=== PATIENT | female | born 1965 | race Caucasian/White ===

== ENCOUNTER → 2017-10-02 | Outpatient (CLI) | payer MEDICARE, MEDICAID | LOC: OD 12:07 | PROVIDERS: ATTEND Nurse Practitioner Acute Care | DX: M79.641 Pain in right hand (principal) | CPT/HCPCS: 36415; 84550 ==

== ENCOUNTER 2017-10-20 16:49 | Emergency (ER) | payer MEDICARE, MEDICAID ==
[2017-10-20 17:47] LABS: APPEARANCE,URINE CLEAR; BILIRUBIN,URINE NEGATIVE (NEGATIVE); COLOR,URINE STRAW; GLUCOSE, URINE NEGATIVE (NEGATIVE); KETONES,URINE NEGATIVE (NEGATIVE); LEUKOCYTE ESTERASE,URINE NEGATIVE (NEGATIVE); NITRITE,URINE NEGATIVE (NEGATIVE); PROTEIN,URINE NEGATIVE (NEGATIVE); URINE SPECIFIC GRAVITY 1.003; UROBILINOGEN,URINE NEGATIVE mg/dL (<2.0)
[2017-10-20] MEDS ORDERED: METOCLOPRAMIDE HCL INJ/PF 10 MG/2 ML SDV IV ONE (17:47)
[2017-10-20] MEDS ORDERED: NORMAL SALINE 1000 ML 1,000 ML IV ONE (17:47)
[2017-10-20] MEDS ORDERED: DIPHENHYDRAMINE HCL 50 MG/ML VIAL IV ONE (17:47)
[2017-10-20] MEDS ORDERED: KETOROLAC TROMETHAMINE INJ/PF 30 MG/1 ML SDV IV ONE (17:47)
--- NOTE | 2017-10-20 17:49 | ER Document Report ---
ED Medical Screen (RME) - General Chief Complaint: Headache >24 hrs old Stated Complaint: HEADACHE,RIGHT SIDE PAIN Time Seen by Provider: 10/20/17 17:44 Notes: Patient is a 52-year-old female, past medical history chronic neck and back pain , bilateral cataracts, presents with worsening frontal headache over the past 3 weeks. She is having some difficulty seeing due to the cataracts and has an appointment with castables worker in 9 days. She is also having some nausea. PE: No focal neuro symptoms. Afebrile. RRR. I have greeted and performed a rapid initial assessment of this patient. A comprehensive ED assessment and evaluation of the patient, analysis of test results and completion of the medical decision making process will be conducted by additional ED providers. TRAVEL OUTSIDE OF THE [place] IN LAST 30 DAYS: No - Related Data Allergies/Adverse Reactions: No Known Allergies Allergy (Verified 10/20/17 16:56) Physical Exam - Vital signs Vitals: Temp Pulse Resp BP Pulse Ox 99.2 F 76 18 124/78 99 10/20/17 16:54 10/20/17 16:54 10/20/17 16:54 10/20/17 16:54 10/20/17 16:54 Course - Vital Signs Vital signs: Temp Pulse Resp BP Pulse Ox 99.2 F 76 18 124/78 99 10/20/17 16:54 10/20/17 16:54 10/20/17 16:54 10/20/17 16:54 10/20/17 16:54 Doctor's Discharge - Discharge Referrals: GURWINDER LARSON NP [Primary Care Provider] - Follow up as needed
[2017-10-20] MEDS ORDERED: DEXAMETHASONE 4 MG TABLET PO ONE (19:12)
[2017-10-20] MEDS ORDERED: HYDROMORPHONE HCL INJ/PF 2 MG/ML AMPULE IV ONE (19:12)
[2017-10-20] MEDS ORDERED: PROMETHAZINE HCL 25 MG TABLET PO ONE (19:15)
--- NOTE | 2017-10-20 19:17 | ER Document Report ---
ED General - General Chief Complaint: Headache >24 hrs old Stated Complaint: HEADACHE,RIGHT SIDE PAIN Time Seen by Provider: 10/20/17 17:44 Mode of Arrival: Ambulatory Information source: Patient, Relative, [facility] Records Notes: 52-year-old female with COPD, hyperlipidemia, chronic neck and back pain, glaucoma presents with complaint of headache that started 4 days prior to arrival. Headache is located in the right forehead with radiation to the neck. She describes it as a throbbing pain. She states this headache is similar to previous headaches except for she can usually control them at home. She denies any head injury, visual changes. She does have a left eye cataract for which she is seeing ophthalmology on October 29, 2017. Patient is currently in pain management for her chronic neck and back pain. She takes Percocet and gabapentin. Patient denies fever, chills. She does have nausea without vomiting. She does admit to photophobia. TRAVEL OUTSIDE OF THE [place] IN LAST 30 DAYS: No - HPI Onset: Other Onset/Duration: Gradual, Persistent, Better Quality of pain: Achy, Throbbing Severity: Mild Associated symptoms: Headache, Nausea. denies: Allergy/hay fever, Body/muscle aches, Chest pain, Nonproductive cough, Productive cough, Fever, Vomiting, Shortness of breath Exacerbated by: Denies Relieved by: Denies Similar symptoms previously: Yes Recently seen / treated by doctor: Yes - Related Data Allergies/Adverse Reactions: No Known Allergies Allergy (Verified 10/20/17 16:56) Past Medical History - General Information source: Patient, [facility] Records - Social History Smoking Status: Never Smoker Chew tobacco use (# tins/day): No Frequency of alcohol use: None Drug Abuse: None Lives with: Spouse/Significant other Family History: Reviewed & Not Pertinent Patient has suicidal ideation: No Patient has homicidal ideation: No - Past Medical History Cardiac Medical History: Reports: Hx Hypercholesterolemia Pulmonary Medical History: Reports: Hx Asthma, Hx COPD Renal/ Medical History: Denies: Hx Peritoneal Dialysis GI Medical History: Reports: Hx Gastroesophageal Reflux Disease Psychiatric Medical History: Reports: Hx Depression - anxiety Past Surgical History: Reports: Hx Appendectomy, Hx Cholecystectomy, Hx Hysterectomy, Hx Orthopedic Surgery - cervical disc Review of Systems - Review of Systems Notes: REVIEW OF SYSTEMS: CONSTITUTIONAL : Denies fever, chills, or sweats. Denies recent illness. Denies weight loss, recent hospitalizations. EENT: Denies visual changes, eye pain. Denies nasal or sinus congestion or discharge. Denies sore throat, oral lesions, difficulty swallowing. CARDIOVASCULAR: Denies chest pain. Denies palpitations. Denies lower extremity edema. RESPIRATORY: Denies cough, cold, or chest congestion. Denies shortness of breath, wheezing. GASTROINTESTINAL: Denies abdominal pain or distention. Denies nausea, vomiting , or diarrhea. Denies blood in vomitus, stools, or per rectum. Denies black, tarry stools. Denies constipation. GENITOURINARY: Denies difficulty urinating, painful urination, frequency, blood in urine, or vaginal discharge. MUSCULOSKELETAL: Denies joint pain or swelling. SKIN: Denies rash, lesions or sores. HEMATOLOGIC : Denies easy bruising or bleeding. LYMPHATIC: Denies swollen glands. NEUROLOGICAL: Denies confusion or altered mental status. Denies passing out or loss of consciousness. Denies dizziness or lightheadedness. Denies weakness or paralysis. Denies problems difficulty with ambulation, slurred speech. Denies sensory loss, numbness, or tingling. Denies seizures. PSYCHIATRIC: Denies anxiety or stress. Denies depression, suicidal ideation, or homicidal ideation. Denies visual or auditory hallucinations. Physical Exam - Vital signs Vitals: Temp Pulse Resp BP Pulse Ox 99.2 F 76 18 124/78 99 10/20/17 16:54 10/20/17 16:54 10/20/17 16:54 10/20/17 16:54 10/20/17 16:54 - Notes Notes: PHYSICAL EXAMINATION: GENERAL: Well-appearing, well-nourished and in no acute distress. HEAD: Atraumatic, normocephalic. EYES: Pupils equal round and reactive to light, extraocular movements intact, conjunctiva are normal. Normal funduscopic exam ENT: Nares patent, oropharynx clear without exudates. Moist mucous membranes. NECK: Normal range of motion, supple without lymphadenopathy LUNGS: Breath sounds clear to auscultation bilaterally and equal. No wheezes rales or rhonchi. HEART: Regular rate and rhythm without murmurs ABDOMEN: Soft, nontender, nondistended abdomen. No guarding, no rebound. No masses appreciated. Female : deferred Musculoskeletal: Normal range of motion, no pitting or edema. No cyanosis. NEUROLOGICAL: Cranial nerves grossly intact. Normal speech, normal gait. Normal sensory, motor exams. NIH 0 PSYCH: Normal mood, normal affect. SKIN: Warm, Dry, normal turgor, no rashes or lesions noted. Course - Re-evaluation Re-evalutation: Laboratory 10/20/17 16:55 Urine Color STRAW Urine Appearance CLEAR Urine pH 5.0 Ur Specific [place] 1.003 Urine Protein NEGATIVE Urine Glucose (UA) NEGATIVE Urine Ketones NEGATIVE Urine Blood NEGATIVE Urine Nitrite NEGATIVE Urine Bilirubin NEGATIVE Urine Urobilinogen NEGATIVE Ur Leukocyte Esterase NEGATIVE Urine WBC (Auto) 0 Urine Mucus (Auto) RARE Urine Ascorbic Acid NEGATIVE 52-year-old female with COPD, hyperlipidemia, chronic neck and back pain, glaucoma presents with complaint of headache that started 4 days prior to arrival. Headache is located in the right forehead with radiation to the neck. She describes it as a throbbing pain. She states this headache is similar to previous headaches except for she can usually control them at home. She denies any head injury, visual changes. She does have a left eye cataract for which she is seeing ophthalmology on October 29, 2017. Patient is currently in pain management for her chronic neck and back pain. She takes Percocet and gabapentin. Patient received IV Benadryl, Toradol, Dilaudid during her ED course. 10/20/17 20:20 Patient reevaluated and she reports an improvement of her headache. 10/21/17 03:03 10/21/17 03:09 10/21/17 03:09 Patient provided the opportunity to ask questions, and express concerns. Discharge instructions discussed. Patient is agreeable with discharge home. Return indications explained and discussed with the patient who displays understanding. Patient encouraged to return to the emergency department immediately with any concerns. - Vital Signs Vital signs: Temp Pulse Resp BP Pulse Ox 97.8 F 75 16 152/83 H 98 10/20/17 20:39 10/20/17 20:39 10/20/17 20:39 10/20/17 20:39 10/20/17 20:39 Discharge - Discharge Clinical Impression: Headache Qualifiers: Headache type: unspecified Headache chronicity pattern: chronic headache Intractability: not intractable Qualified Code(s): R51 - Headache Condition: Good Disposition: HOME, SELF-CARE Instructions: Headache ([facility]) Additional Instructions: Please follow-up with your veneer stapler as already scheduled. Referrals: GURWINDER LARSON NP [NURSE PRACTITIONER] - Follow up as needed
[2017-10-20] MEDS ORDERED: LORAZEPAM 1 MG TABLET PO ONE (20:21)
[2017-10-20 20:40] VITALS: BP 152/83
== END 2017-10-20 20:39 | disposition home or self-care (01) ==
LOC: ER 16:49
DX: R51 Headache (principal); R11.0 Nausea; H53.149 Visual discomfort, unspecified; J44.9 Chronic obstructive pulmonary disease, unspecified; H26.9 Unspecified cataract; H40.9 Unspecified glaucoma; M54.9 Dorsalgia, unspecified; M54.2 Cervicalgia; G89.29 Other chronic pain; Z79.891 Long term (current) use of opiate analgesic; Z79.899 Other long term (current) drug therapy
CPT/HCPCS: 99284; 96361; 96374; 96375; 81001; A9270 ×3; J1200; J1885; J2765; J1170; J7030

== ENCOUNTER 2017-11-16 11:57 | Emergency (ER) | payer MEDICARE, MEDICAID ==
[2017-11-16] MEDS ORDERED: FENTANYL CITRATE INJ/PF 100 MCG/2 ML AMPUL IV ONE (12:26)
[2017-11-16] MEDS ORDERED: KETOROLAC TROMETHAMINE 60 MG/2 ML SDV IM ONE (12:26)
[2017-11-16] MEDS ORDERED: ONDANSETRON ODT 4 MG TAB (6 TAB/ER DISP) PO PRN (12:26)
--- NOTE | 2017-11-16 12:27 | ER Document Report ---
ED Medical Screen (RME) - General Chief Complaint: Chest Pain Stated Complaint: HAND PAIN/NUMBNESS Time Seen by Provider: 11/16/17 12:21 Notes: 52 years old female under pain management, for chronic lower back pain, chronic right arm pain due to prolapse intervertebral disc, surgically corrected. Presents today with another episode of pain over the right arm starting from yesterday. States she was taking Percocet without relief. TRAVEL OUTSIDE OF THE [place] IN LAST 30 DAYS: No - Related Data Allergies/Adverse Reactions: No Known Drug Allergies Allergy (Mild, Verified 11/16/17 12:25) Past Medical History - Social History Chew tobacco use (# tins/day): No Frequency of alcohol use: Occasional Drug Abuse: Marijuana - Past Medical History Cardiac Medical History: Reports: Hx Hypercholesterolemia Denies: Hx Coronary Artery Disease, Hx Heart Attack, Hx Hypertension Pulmonary Medical History: Reports: Hx Asthma, Hx Bronchitis Denies: Hx COPD, Hx Pneumonia Neurological Medical History: Denies: Hx Cerebrovascular Accident, Hx Seizures Renal/ Medical History: Denies: Hx Peritoneal Dialysis GI Medical History: Reports: Hx Diverticulitis, Hx Gastroesophageal Reflux Disease, Hx Irritable Bowel, Hx Ulcer Musculoskeltal Medical History: Reports Hx Arthritis Psychiatric Medical History: Reports: Hx Depression Past Surgical History: Reports: Hx Appendectomy, Hx Cholecystectomy, Hx Genitourinary Surgery - bladder tack, Hx Hysterectomy, Hx Orthopedic Surgery - cervical disc - Immunizations Hx Diphtheria, Pertussis, Tetanus Vaccination: Yes Physical Exam - Vital signs Vitals: Temp Pulse Resp BP Pulse Ox 99.1 F 71 20 104/55 L 98 11/16/17 12:11/16/17 12:11/16/17 12:11/16/17 12:11/16/17 12:06 Course - Vital Signs Vital signs: Temp Pulse Resp BP Pulse Ox 99.1 F 71 20 104/55 L 98 11/16/17 12:11/16/17 12:11/16/17 12:11/16/17 12:11/16/17 12:06 Doctor's Discharge - Discharge Referrals: CELINA TRONCOSO MD [Primary Care Provider] - Follow up as needed
--- NOTE | 2017-11-16 13:12 | EKG REPORT ---
SEVERITY:- NORMAL ECG - SINUS RHYTHM : Confirmed by: Natalya Momin MD 16-Nov-2017 13:11:26
[2017-11-16] MEDS ORDERED: PREDNISONE 20 MG TABLET PO ONE (17:54)
--- NOTE | 2017-11-16 17:54 | ER Document Report ---
ED General - General Mode of Arrival: Ambulatory Information source: Patient TRAVEL OUTSIDE OF THE [place] IN LAST 30 DAYS: No <DAMIAN OSULLIVAN - Last Filed: 11/16/17 22:47> <ALEJANDRA GALLEGOS - Last Filed: 11/16/17 23:56> - General Chief Complaint: Chest Pain Stated Complaint: HAND PAIN/NUMBNESS Time Seen by Provider: 11/16/17 12:21 Notes: 52-year-old female who presents to the emergency department today with complaints of burning sensation in her right hand. Patient states certain movements seem to exacerbate this burning sensation. Patient states it sometimes wakes her up from sleep. There was no injury. (DAMIAN OSULLIVAN) - Related Data Allergies/Adverse Reactions: No Known Drug Allergies Allergy (Mild, Verified 11/16/17 12:25) Past Medical History - General Information source: Patient - Social History Smoking Status: Current Every Day Smoker Cigarette use (# per day): Yes Chew tobacco use (# tins/day): No Frequency of alcohol use: Occasional Drug Abuse: Marijuana Family History: None, Reviewed & Not Pertinent, Other Patient has suicidal ideation: No Patient has homicidal ideation: No - Past Medical History Cardiac Medical History: Reports: Hx Hypercholesterolemia Denies: Hx Coronary Artery Disease, Hx Heart Attack, Hx Hypertension Pulmonary Medical History: Reports: Hx Asthma, Hx Bronchitis Denies: Hx COPD, Hx Pneumonia Neurological Medical History: Denies: Hx Cerebrovascular Accident, Hx Seizures Renal/ Medical History: Denies: Hx Peritoneal Dialysis GI Medical History: Reports: Hx Diverticulitis, Hx Gastroesophageal Reflux Disease, Hx Irritable Bowel, Hx Ulcer Musculoskeletal Medical History: Reports Hx Arthritis Psychiatric Medical History: Reports: Hx Depression Past Surgical History: Reports: Hx Appendectomy, Hx Cholecystectomy, Hx Genitourinary Surgery - bladder tack, Hx Hysterectomy, Hx Orthopedic Surgery - cervical disc - Immunizations Hx Diphtheria, Pertussis, Tetanus Vaccination: Yes <DAMIAN OSULLIVAN - Last Filed: 11/16/17 22:47> Review of Systems - Review of Systems Constitutional: No symptoms reported EENT: No symptoms reported Cardiovascular: No symptoms reported Respiratory: No symptoms reported Gastrointestinal: No symptoms reported Genitourinary: No symptoms reported Female Genitourinary: No symptoms reported Musculoskeletal: See HPI, Other - right hand burning Skin: No symptoms reported Hematologic/Lymphatic: No symptoms reported Neurological/Psychological: No symptoms reported -: Yes All other systems reviewed and negative <DAMIAN OSULLIVAN - Last Filed: 11/16/17 22:47> Physical Exam - Vital signs Interpretation: Normal - General General appearance: Alert, Anxious In distress: Moderate - HEENT Head: Normocephalic, Atraumatic Eyes: Normal Pupils: PERRL Neck: Normal - Respiratory Respiratory status: No respiratory distress - Cardiovascular Rhythm: Regular - Abdominal Inspection: Normal - Back Back: Normal - Extremities General upper extremity: Other - Right hand positive Phalen's and Tinel test General lower extremity: Normal inspection - Neurological Neuro grossly intact: Yes - Psychological Associated symptoms: Anxious - Skin Skin Temperature: Warm Skin Moisture: Dry Skin Color: Normal <ALEJANDRA GALLEGOS - Last Filed: 11/16/17 23:56> - Vital signs Vitals: Temp Pulse Resp BP Pulse Ox 99.1 F 71 20 104/55 L 98 11/16/17 12:06 11/16/17 12:06 11/16/17 12:06 11/16/17 12:06 11/16/17 12:06 Course - EKG Interpretation by Fl EKG shows normal: Sinus rhythm, [place], Intervals, QRS Complexes, ST-T Waves Rate: Normal - 68 Rhythm: NSR <ALEJANDRA GALLEGOS - Last Filed: 11/16/17 23:56> - Vital Signs Vital signs: Temp Pulse Resp BP Pulse Ox 97.8 F 80 18 121/89 H 98 11/16/17 18:24 11/16/17 18:24 11/16/17 18:24 11/16/17 18:24 11/16/17 18:24 Discharge <DAMIAN OSULLIVAN - Last Filed: 11/16/17 22:47> <ALEJANDRA GALLEGOS - Last Filed: 11/16/17 23:56> - Discharge Clinical Impression: Right carpal tunnel syndrome Condition: Stable Disposition: HOME, SELF-CARE Additional Instructions: Carpal Tunnel Syndrome: Your examination suggests carpal tunnel syndrome. This syndrome is due to pressure on a nerve in the wrist. The pressure may be caused by an old injury, hard work using the wrist, work involving repeated motions of the hand, wrist positions that keep pressure on the joint, or arthritis in the wrist. Typical symptoms are tingling, numbness, and pain in the palm, thumb, index and middle fingers, and one side of the ring finger. Often a splint, ice packs, and antiinflammatory medication make the symptoms go away. If the physician feels that your problem is chronic, you will be referred to a specialist for further care. If symptoms do not go away, carpal tunnel syndrome may require surgery. You should call the doctor if pain increases, if you develop difficulty using the thumb or fingers, or if major swelling occurs. Start the prednisone as prescribed tomorrow. Try the wrist splint to keep your wrist in extension and see if that helps prevent the symptoms from persisting or worsening. Elevate the hand above the heart as much as possible. Follow-up with your primary care provider tomorrow for referral to a surgeon that does carpal tunnel release. Prescriptions: Prednisone [Deltasone 10 mg Tablet] 10 mg PO ASDIR PRN #21 tablet PRN Reason: Referrals: CELINA TRONCOSO MD [Primary Care Provider] - Follow up tomorrow Scribe Attestation: 11/16/17 17:57 I personally performed the services described in the documentation, reviewed and edited the documentation which was dictated to the scribe in my presence, and it accurately records my words and actions. (ALEJANDRA GALLEGOS) Scribe Documentation - Scribe Written by Elvin:: Elvin Hardwick, 11/16/2017 [id number] acting as scribe for :: Rl <DAMIAN OSULLIVAN - Last Filed: 11/16/17 22:47>
[2017-11-16 18:27] VITALS: BP 121/89
== END 2017-11-16 18:28 | disposition home or self-care (01) ==
LOC: ER 11:57
DX: G56.01 Carpal tunnel syndrome, right upper limb (principal); R07.9 Chest pain, unspecified; R20.0 Anesthesia of skin; F17.210 Nicotine dependence, cigarettes, uncomplicated; E78.00 Pure hypercholesterolemia, unspecified; Z90.49 Acquired absence of other specified parts of digestive tract
CPT/HCPCS: 93005; 99285; 96372; 96374; 93010; L3908; J1885; J3010; A9270; J7512

== ENCOUNTER 2018-01-06 10:26 | Day surgery (SDC) | payer MEDICARE, MEDICAID ==
[~2018-01-06 10:26] MED LIST: KETOROLAC TROMETHAMINE 0.45% 4 DROP/0.4 ML DROPERETTE OS PRN
[2018-01-06] MEDS ORDERED: TOBRAMYCIN SULFATE/DEXAMETH OPH OINTMENT 3.5 GM ONE (10:30)
[2018-01-06] MEDS ORDERED: EPINEPHRINE INJ/PF 1 MG/1 ML AMPULE ONE (10:30)
[2018-01-06] MEDS ORDERED: CHONDR SU A NA/HYALUR INTRAOC KIT (SURGICARE) ONE (10:30)
[2018-01-06] MEDS ORDERED: LIDOCAINE 1% INJ-PF (10 MG/ML) 30 ML SDV ONE (10:30)
[2018-01-06] MEDS: BESIFLOXACIN HCL 0.6% OPH SUSP 5 ML BOTTLE OS PRN ×3 (11:27→12:15)
[2018-01-06] MEDS: CYCLOPENTOLATE 0.2%/PHENYLEPHRINE 1% OPH SOLN 2 ML OS PRN ×3 (11:27→11:47)
[2018-01-06] MEDS: TETRACAINE HCL 0.5% OPH SOLN 0.6 ML DROPERETTE OS PRN ×3 (11:27→11:57)
[2018-01-06] MEDS: TROPICAMIDE 1% OPH SOLN 3 ML OS PRN ×3 (11:27→11:47)
[2018-01-06] MEDS ORDERED: FENTANYL CITRATE INJ/PF 100 MCG/2 ML AMPUL ONE (11:36)
[2018-01-06] MEDS ORDERED: MIDAZOLAM 2 MG/2 ML INJ ONE (11:36)
== END 2018-01-06 12:52 | disposition home or self-care (01) ==
LOC: SC 10:26
PROVIDERS: ATTEND Ophthalmology
DX: H25.12 Age-related nuclear cataract, left eye (principal); E78.00 Pure hypercholesterolemia, unspecified; F17.210 Nicotine dependence, cigarettes, uncomplicated; J43.9 Emphysema, unspecified; M06.9 Rheumatoid arthritis, unspecified; K21.9 Gastro-esophageal reflux disease without esophagitis; Z79.51 Long term (current) use of inhaled steroids; Z79.899 Other long term (current) drug therapy
CPT/HCPCS: 66984; V2630; J2250; J3490 ×3; A9270; J0171; J3010; 142

== ENCOUNTER 2018-01-13 09:04 | Day surgery (SDC) | payer MEDICARE, MEDICAID ==
[~2018-01-13 09:04] MED LIST changes: +KETOROLAC TROMETHAMINE 0.45% 4 DROP/0.4 ML DROPERETTE OD PRN; -KETOROLAC TROMETHAMINE 0.45% 4 DROP/0.4 ML DROPERETTE OS PRN; +MIDAZOLAM 2 MG/2 ML INJ ONE
[2018-01-13] MEDS: CYCLOPENTOLATE 0.2%/PHENYLEPHRINE 1% OPH SOLN 2 ML OD PRN ×3 (09:14→09:34)
[2018-01-13] MEDS: BESIFLOXACIN HCL 0.6% OPH SUSP 5 ML BOTTLE OD PRN ×4 (09:14→10:29)
[2018-01-13] MEDS: TROPICAMIDE 1% OPH SOLN 3 ML OD PRN ×3 (09:14→09:34)
[2018-01-13] MEDS: TETRACAINE HCL 0.5% OPH SOLN 0.6 ML DROPERETTE OD PRN ×3 (09:15→10:18)
[2018-01-13] MEDS: CHONDR SU A NA/HYALUR INTRAOC KIT (SURGICARE) ONE ×2 (10:22→10:28)
[2018-01-13] MEDS: EPINEPHRINE INJ/PF 1 MG/1 ML AMPULE ONE ×2 (10:22→10:28)
[2018-01-13] MEDS: TOBRAMYCIN SULFATE/DEXAMETH OPH OINTMENT 3.5 GM ONE ×2 (10:23→10:29)
[2018-01-13] MEDS: LIDOCAINE 1% INJ-PF (10 MG/ML) 30 ML SDV ONE ×2 (10:23→10:28)
[2018-01-13] MEDS ORDERED: FENTANYL CITRATE INJ/PF 100 MCG/2 ML AMPUL ONE (10:25)
[2018-01-13] MEDS ORDERED: MIDAZOLAM 2 MG/2 ML INJ ONE (10:25)
== END 2018-01-13 11:10 | disposition home or self-care (01) ==
LOC: SC 09:04
PROVIDERS: ATTEND Ophthalmology
DX: H25.11 Age-related nuclear cataract, right eye (principal); Z98.42 Cataract extraction status, left eye; M19.90 Unspecified osteoarthritis, unspecified site; K21.9 Gastro-esophageal reflux disease without esophagitis; E78.00 Pure hypercholesterolemia, unspecified; M06.9 Rheumatoid arthritis, unspecified; J43.9 Emphysema, unspecified; F17.210 Nicotine dependence, cigarettes, uncomplicated; Z79.51 Long term (current) use of inhaled steroids; Z79.899 Other long term (current) drug therapy
CPT/HCPCS: 66984; V2630; J2250; J3490 ×3; A9270; J0171; J3010; 142

== ENCOUNTER 2018-05-03 10:40 | Inpatient (IN) | payer MEDICARE, MEDICAID ==
[2018-04-30 10:25] LABS: APPEARANCE,URINE CLEAR; BILIRUBIN,URINE NEGATIVE (NEGATIVE); COLOR,URINE YELLOW; GLUCOSE, URINE NEGATIVE (NEGATIVE); KETONES,URINE NEGATIVE (NEGATIVE); LEUKOCYTE ESTERASE,URINE TRACE (NEGATIVE); NITRITE,URINE NEGATIVE (NEGATIVE); PROTEIN,URINE NEGATIVE (NEGATIVE); URINE SPECIFIC GRAVITY 1.012; UROBILINOGEN,URINE NEGATIVE mg/dL (<2.0)
[2018-04-30 10:40] LABS: HEMATOCRIT 40.3 % (36.0-47.0); MEAN CORPUSCULAR HGB CONC 34.7 g/dL (32.0-36.0); MEAN CORPUSCULAR VOLUME 95 fl (80-97); PLATELET COUNT 197 10^3/uL (150-450); RED BLOOD COUNT 4.24 10^6/uL (3.72-5.28); RED CELL DISTRIBUTION WIDTH 14.1 % (11.5-14.0); WHITE BLOOD COUNT 6.6 10^3/uL (4.0-10.5)
[2018-04-30 11:13] LABS: ANION GAP 10 (5-19); BLOOD UREA NITROGEN 10 mg/dL (7-20); CALCIUM 10.4 mg/dL (8.4-10.2); CARBON DIOXIDE 27 mmol/L (22-30); CHLORIDE 106 mmol/L (98-107); GLUCOSE 89 mg/dL (75-110); POTASSIUM 4.1 mmol/L (3.6-5.0); SODIUM 142.5 mmol/L (137-145)
--- NOTE | 2018-04-30 11:42 | RADIOLOGY REPORT (SQ) ---
EXAM DESCRIPTION: CHEST PA/LATERAL COMPLETED DATE/TIME: 04/30/2018 11:29 am REASON FOR STUDY: PRE-OP COMPARISON: None. EXAM PARAMETERS: NUMBER OF VIEWS: two views TECHNIQUE: Digital Frontal and Lateral radiographic views of the chest acquired. RADIATION DOSE: NA LIMITATIONS: none FINDINGS: LUNGS AND PLEURA: No opacities, masses or pneumothorax. No pleural effusion. MEDIASTINUM AND HILAR STRUCTURES: No masses or contour abnormalities. HEART AND VASCULAR STRUCTURES: Heart normal size. No evidence for failure. BONES: No acute findings. HARDWARE: None in the chest. OTHER: No other significant finding. IMPRESSION: NO SIGNIFICANT RADIOGRAPHIC FINDING IN THE CHEST. TECHNICAL DOCUMENTATION: JOB ID: [id number] [employer]- All Rights Reserved Reading location - IP/workstation name: [email or web address]
--- NOTE | 2018-04-30 20:49 | EKG REPORT ---
SEVERITY:- NORMAL ECG - SINUS RHYTHM : Confirmed by: Gray Coronel 30-Apr-2018 20:48:27
[~2018-05-03 10:40] MED LIST changes: +CEFAZOLIN SODIUM 2 GM in DEXTROSE 5%-WATER 100 ML IV PRN; -KETOROLAC TROMETHAMINE 0.45% 4 DROP/0.4 ML DROPERETTE OD PRN; +LACTATED RINGERS 1000 ML IV PRN; +LIDOCAINE 0.5% INJ-PF (5 MG/ML) 50 ML SDV SUBCUT PRN; -MIDAZOLAM 2 MG/2 ML INJ ONE
[2018-05-03] MEDS ORDERED: FENTANYL CITRATE INJ/PF 100 MCG/2 ML AMPUL ONE ×2 (11:08→11:24)
[2018-05-03] MEDS ORDERED: ACETAMINOPHEN 1,000 MG/100 ML RTUPB IV ONE (11:09)
[2018-05-03] MEDS ORDERED: ONDANSETRON HCL INJ/PF 4 MG/2 ML SDV ONE (11:09)
[2018-05-03] MEDS ORDERED: TRANEXAMIC ACID INJ/PF 1,000 MG/10 ML SDV IV ONE (11:09)
[2018-05-03] MEDS ORDERED: PROPOFOL INJ 200 MG/20 ML VIAL IV ONE ×2 (11:09→11:20)
[2018-05-03] MEDS ORDERED: MIDAZOLAM 2 MG/2 ML INJ ONE (11:09)
[2018-05-03] MEDS ORDERED: DEXAMETHASONE SOD PHOSPHATE INJ 4 MG/1 ML VIAL ONE (11:09)
[2018-05-03] MEDS ORDERED: BUPIVACAINE HCL/DEX-WATER/PF 15 MG/2 ML AMPULE ONE (11:11)
[2018-05-03] MEDS ORDERED: CEFAZOLIN 2 GM/D5W RTU 2 GM/50 ML RTUPB IV ONE (11:13)
[2018-05-03] MEDS ORDERED: KETAMINE HCL INJ 500 MG/10 ML VIAL ONE (11:19)
[2018-05-03] MEDS ORDERED: BUPIVACAINE HCL 0.5%-EPI 1:200000 INJ/PF 30 ML VIAL ONE (11:57)
[2018-05-03] MEDS ORDERED: MEPERIDINE HCL/PF INJ 25 MG/1 ML DISP.SYRIN IV PRN (12:10)
[2018-05-03] MEDS ORDERED: FENTANYL CITRATE INJ/PF 100 MCG/2 ML AMPUL IV PRN ×3 (12:10)
[2018-05-03] MEDS ORDERED: PROMETHAZINE HCL INJ 25 MG/1 ML VIAL IV PRN ×2 (12:10)
[2018-05-03] MEDS ORDERED: DIPHENHYDRAMINE HCL 50 MG/ML VIAL IV PRN (12:10)
[2018-05-03] MEDS ORDERED: MORPHINE SULFATE 10 MG/ML INJ IV PRN (12:10)
--- NOTE | 2018-05-03 12:30 | Operative Report ---
Operative Report DATE OF SURGERY: 05/03/18 PREOPERATIVE DIAGNOSIS: Stress fracture left femoral neck OPERATION: Percutaneous pinning of left femoral neck stress fracture SURGEON: COLEEN SANTIAGO ANESTHESIA: LMAC ESTIMATED BLOOD LOSS: Minimal PROCEDURE: With the patient supine on the fracture table the left upper leg and hindquarter prepped and draped in sterile fashion. The skin overlying the trochanteric ridge is infiltrated with a combination of Marcaine, and epinephrine. Subsequently a pin for the [place] titanium 6.5 millimeter screw was advanced through the inferior aspect of the neck and central in terms of anterior posterior dimensions through the left femur. A pin guide was then used to lyse 2 pins proximal to this. Screw lengths were measured off the pins and 3 6.5 mm titanium screws were advanced over the pins to secure the femoral neck. The wound is irrigated and closure is interrupted Vicryl followed by lupe. A sterile dressing was applied and the patient's return to the PACU in satisfactory condition.
[2018-05-03] MEDS: HYDROMORPHONE HCL INJ/PF 2 MG/ML AMPULE ONE ×2 (12:33→12:40)
[2018-05-03] MEDS: FENTANYL CITRATE INJ/PF 100 MCG/2 ML AMPUL ONE ×2 (12:45→12:50)
[2018-05-03] MEDS: LORAZEPAM INJ 2 MG/1 ML VIAL ONE ×2 (12:55→13:10)
[2018-05-03] MEDS ORDERED: RINGERS SOLUTION,LACTATED 1,000 ML IV PRN (14:37)
[2018-05-03] MEDS ORDERED: ONDANSETRON 4 MG TAB.RAPDIS PO PRN (14:40)
--- NOTE | 2018-05-03 15:50 | RADIOLOGY REPORT (SQ) ---
EXAM DESCRIPTION: HIP IN OPERATING RM; NO CHG FLUORO COMPLETED DATE/TIME: 05/03/2018 3:25 pm REASON FOR STUDY: HIP PINNING LEFT SIDE ASST WITH FLUORO IN OR M84.352A STRESS FRACTURE, LEFT FEMUR , INITIAL ENCOUNTER FOR COMPARISON: Two-view chest 04/30/2018 FLUOROSCOPY TIME: 1.1 minutes 3 digital C-arm images saved to PACS. TECHNIQUE: Intra-operative images acquired during surgical procedure to evaluate progress. NUMBER OF IMAGES: 3 digital C-arm images LIMITATIONS: None. FINDINGS: Intra procedural imaging and fluoro during ORIF left femoral neck fracture, 3 lag screws a re in place. Please see the operative report for further details IMPRESSION: IMAGE(S) OBTAINED DURING PROCEDURE. COMMENT: Quality ID [id number]: Final reports for procedures using fluoroscopy that document radiation exp osure indices, or exposure time and number of fluorographic images (if radiation exposure indices are not available) Please consult full operative report of the attending physician for description of the procedure. TECHNICAL DOCUMENTATION: JOB ID: [id number] [employer]- All Rights Reserved Reading location - IP/workstation name: [email or web address]
--- NOTE | 2018-05-03 15:50 | RADIOLOGY REPORT (SQ) ---
EXAM DESCRIPTION: HIP IN OPERATING RM; NO CHG FLUORO COMPLETED DATE/TIME: 05/03/2018 3:25 pm REASON FOR STUDY: HIP PINNING LEFT SIDE ASST WITH FLUORO IN OR M84.352A STRESS FRACTURE, LEFT FEMUR , INITIAL ENCOUNTER FOR COMPARISON: Two-view chest 04/30/2018 FLUOROSCOPY TIME: 1.1 minutes 3 digital C-arm images saved to PACS. TECHNIQUE: Intra-operative images acquired during surgical procedure to evaluate progress. NUMBER OF IMAGES: 3 digital C-arm images LIMITATIONS: None. FINDINGS: Intra procedural imaging and fluoro during ORIF left femoral neck fracture, 3 lag screws a re in place. Please see the operative report for further details IMPRESSION: IMAGE(S) OBTAINED DURING PROCEDURE. COMMENT: Quality ID [id number]: Final reports for procedures using fluoroscopy that document radiation exp osure indices, or exposure time and number of fluorographic images (if radiation exposure indices are not available) Please consult full operative report of the attending physician for description of the procedure. TECHNICAL DOCUMENTATION: JOB ID: [id number] [employer]- All Rights Reserved Reading location - IP/workstation name: [email or web address]
[2018-05-03] MEDS: OXYCODONE HCL IR 5 MG TABLET PO PRN (17:54)
[2018-05-03] MEDS: CEFAZOLIN SODIUM 2 GM in DEXTROSE 5%-WATER 100 ML IV SCH (17:54)
[2018-05-03] MEDS: MORPHINE SULFATE 10 MG/ML INJ IV PRN ×3 (18:07→22:48)
[2018-05-03] MEDS: NICOTINE 21 MG/24 HR PATCH.TD24 TD SCH (18:09)
[2018-05-04] MEDS: OXYCODONE HCL IR 5 MG TABLET PO PRN ×2 (00:34→08:50)
[2018-05-04] MEDS: MORPHINE SULFATE 10 MG/ML INJ IV PRN (01:38)
[2018-05-04] MEDS: CEFAZOLIN SODIUM 2 GM in DEXTROSE 5%-WATER 100 ML IV SCH (01:38)
--- NOTE | 2018-05-04 07:18 | PDOC DISCHARGE SUMMARY ---
General - Admit/Disc Date/PCP Admission Date/Primary Care Provider: 05/03/18 10:40 CELINA TRONCOSO MD Discharge Date: 05/04/18 - Discharge Diagnosis (1) Stress fracture of neck of left femur Is this a current diagnosis for this admission?: Yes - Additional Information Home Medications: Atorvastatin Calcium 20 mg PO DAILY 10/20/17 Gabapentin 600 mg PO TID 10/20/17 Oxycodone HCl/Acetaminophen [Endocet 7.5-325 mg Tablet] 1 each PO TIDP PRN 10/20/17 Pantoprazole Sodium 40 mg PO BID 10/20/17 Budesonide/Formoterol Fumarate [Symbicort 160-4.5 Mcg Inhaler] 2 puff IH BID 12/16/17 Prednisone [Deltasone 10 mg Tablet] 10 mg PO DAILY 12/16/17 Leflunomide [Arava 20 mg Tablet] 20 mg PO DAILY 01/05/18 Albuterol Sulfate [Ventolin 0.042% Neb 1.25 mg/3 mL Ampul] 1.25 mg IH BID PRN 04/30/18 Baclofen [Baclofen 10 mg Tablet] 20 mg PO QIDP PRN 04/30/18 Meloxicam [Mobic] 7.5 mg PO BIDP PRN 05/03/18 Tizanidine HCl [Zanaflex 4 Mg Tablet] 4 mg PO TIDP PRN 05/03/18 History of Present Illness History of Present Illness: KAYLAH GREGG is a 52 year old female Patient is a 52-year-old white female who presented with progressive left hip pain and functional disability. MRI scan suggested a stress fracture in the femoral neck. Patient is admitted for elective percutaneous fixation Hospital Course Hospital Course: Patient is admitted through the operating where she undergoes uncomplicated percutaneous fixation of a left femoral neck fracture. She is returned to floor in satisfactory condition. Ongoing need for nicotine as well as analgesic medication is problematic. Physical Exam Vital Signs: Temp Pulse Resp BP Pulse Ox 37.0 C 85 16 109/58 L 96 05/03/18 23:30 05/03/18 23:30 05/03/18 23:30 05/03/18 23:30 05/03/18 23:30 Intake & Output 05/03/18 05/04/18 05/05/18 06:59 06:59 06:59 Intake Total 1275 Output Total 8 Balance 1267 Weight 75.3 kg General appearance: PRESENT: mild distress Head exam: PRESENT: normocephalic Respiratory exam: PRESENT: unlabored Cardiovascular exam: PRESENT: RRR Pulses: PRESENT: +1 pedal pulses bilateral Vascular exam: PRESENT: normal capillary refill GI/Abdominal exam: PRESENT: soft Rectal exam: PRESENT: deferred Extremities exam: PRESENT: other - Left thigh dressing clean dry and intact. Leg lengths are equal. Distal neurovascular examination is intact. Neurological exam: PRESENT: alert, awake, oriented to person, oriented to place, oriented to time, oriented to situation. ABSENT: motor sensory deficit Psychiatric exam: PRESENT: appropriate affect, normal mood. ABSENT: homicidal ideation, suicidal ideation Skin exam: PRESENT: dry, intact, warm. ABSENT: cyanosis, rash Results Laboratory Results: 04/30/18 09:53 04/30/18 09:53 Impressions: Chest X-Ray 04/30/18 11:20 IMPRESSION: NO SIGNIFICANT RADIOGRAPHIC FINDING IN THE CHEST. Fluoroscopy 05/03/18 00:00 IMPRESSION: IMAGE(S) OBTAINED DURING PROCEDURE. Hip X-Ray 05/03/18 00:00 IMPRESSION: IMAGE(S) OBTAINED DURING PROCEDURE. Status: Imported from PACS Qualifiers - * PATIENT BEING DISCHARGED WITH ANY OF THE FOLLOWING DIAGNOSIS: No VTE patient discharged on overlapping Therapy?: Yes Plan Discharge Plan: Patient be seen by physical therapy for touchdown weightbearing. She will malaise abdominal pain. Subsequent discharge home on a touchdown weightbearing restriction with home health services and DME. Follow-up with Dr. [facility] for surgery in 2 weeks. Time Spent: Less than 30 Minutes
[2018-05-04 09:19] VITALS: BP 129/64
[2018-05-04] MEDS: NICOTINE 21 MG/24 HR PATCH.TD24 TD SCH (09:40)
== END 2018-05-04 09:59 | disposition home health service (06) | DRG 482 ==
LOC: INOR 10:40 → 4S 14:06
PROVIDERS: ADMIT Orthopaedic Surgery; ATTEND Orthopaedic Surgery
PROC: 0QH734Z Insertion of Internal Fixation Device into Left Upper Femur, Percutaneous Approach (ICD-10-PCS; principal; 2018-05-03 12:30)
DX: M84.352A Stress fracture, left femur, initial encounter for fracture (principal); J43.8 Other emphysema; M19.90 Unspecified osteoarthritis, unspecified site; F17.210 Nicotine dependence, cigarettes, uncomplicated; X58.XXXA Exposure to other specified factors, initial encounter; Y93.9 Activity, unspecified; Y92.9 Unspecified place or not applicable
CPT/HCPCS: 01220; 36415; 71046; 80048; 81001; 85027; 93005; 93010; C1713; C1769; J0131; J0690; J1100; J1170; J2060; J2250; J2270; J2405; J2704; J3010; J3490; J7120; S0119

== ENCOUNTER 2018-06-04 10:42 | Emergency (ER) | payer MEDICARE, MEDICAID ==
[2018-06-04 11:05] VITALS: BP 113/67
--- NOTE | 2018-06-04 11:15 | ER Document Report ---
ED Extremity Problem, Lower - General Chief Complaint: Leg Pain Stated Complaint: LEG PAIN Time Seen by Provider: 06/04/18 11:00 Primary Care Provider: CELINA TRONCOSO MD [NO LOCAL MD] - Follow up as needed COLEEN SANTIAGO MD [ACTIVE STAFF] - Follow up as needed Mode of Arrival: Wheelchair Information source: Patient Notes: 52-year-old female presented to ED for complaint of right knee numbness since morning. She reports that she fell 3 days ago. She also reports reports that she has bilateral low back pain. She reports she had surgery on her left hip a month ago due to a fracture. Patient states she is fallen 3 times since the surgery. She states she fell 3 days ago on her right side. Patient is alert and oriented respirations regular and unlabored speaking in full sentences patient was in a wheelchair and states that she could not feel anything but when I touched her legs she felt everything and said ouch when I moved her foot she said ouch she had full range of motion to her lower extremities. She states she is not supposed to walk on her left hip so she would not walk. TRAVEL OUTSIDE OF THE [place] IN LAST 30 DAYS: No - HPI Patient complains to provider of: Altered sensation - Right knee and leg, Pain Location: Leg Occurred: This morning Onset/Duration: Intermittent Quality of pain: Other - Numbness Severity: Moderate Pain Level: 4 Context: Fell Recent injury: Possibly - Falls Associated symptoms: Unable to bear weight, Other Exacerbated by: Nothing Relieved by: Nothing - Related Data Allergies/Adverse Reactions: No Known Drug Allergies Allergy (Mild, Verified 06/04/18 10:55) Past Medical History - General Information source: Patient - Social History Smoking Status: Unknown if Ever Smoked Lives with: Family Family History: None, Reviewed & Not Pertinent, Other Patient has suicidal ideation: No Patient has homicidal ideation: No - Past Medical History Cardiac Medical History: Reports: Hx Hypercholesterolemia Pulmonary Medical History: Reports: Hx Asthma, Hx Bronchitis, Hx COPD EENT Medical History: Reports: None Neurological Medical History: Reports: None Endocrine Medical History: Reports: None Renal/ Medical History: Reports: None Malignancy Medical History: Reports: None GI Medical History: Reports: Hx Diverticulitis, Hx Gastroesophageal Reflux Disease, Hx Irritable Bowel Musculoskeletal Medical History: Reports Hx Arthritis - RA Skin Medical History: Reports None Psychiatric Medical History: Reports: Hx Depression Traumatic Medical History: Reports: None Infectious Medical History: Reports: None Past Surgical History: Reports: Hx Appendectomy, Hx Cholecystectomy, Hx Genitourinary Surgery - bladder tack, Hx Hysterectomy, Hx Orthopedic Surgery - cervical disc - Immunizations Hx Diphtheria, Pertussis, Tetanus Vaccination: Yes Hx Pneumococcal Vaccination: 02/11/14 Review of Systems - Review of Systems Constitutional: No symptoms reported EENT: No symptoms reported Cardiovascular: No symptoms reported Respiratory: No symptoms reported Gastrointestinal: No symptoms reported Genitourinary: No symptoms reported Female Genitourinary: No symptoms reported Musculoskeletal: Other - Right knee and leg numbness Skin: No symptoms reported Hematologic/Lymphatic: No symptoms reported Neurological/Psychological: No symptoms reported -: Yes All other systems reviewed and negative Physical Exam - Vital signs Vitals: Temp Pulse Resp BP Pulse Ox 98.7 F 76 14 113/67 99 06/04/18 10:59 06/04/18 10:59 06/04/18 10:59 06/04/18 10:59 06/04/18 10:59 Interpretation: Normal - General General appearance: Appears well, Alert - HEENT Head: Normocephalic, Atraumatic Eyes: Normal Pupils: PERRL - Respiratory Respiratory status: No respiratory distress Chest status: Nontender Breath sounds: Normal Chest palpation: Normal - Cardiovascular Rhythm: Regular Heart sounds: Normal auscultation Murmur: No - Abdominal Inspection: Normal Distension: No distension Bowel sounds: Normal Tenderness: Nontender Organomegaly: No organomegaly - Back Back: Normal, Nontender - Extremities General upper extremity: Normal inspection, Nontender, Normal color, Normal ROM, Normal temperature General lower extremity: Normal inspection, Normal color, Normal temperature Hip: Tender Knee: Tender, Patellar tendon intact, Unable to bear weight. No: Abrasion, Deformity, Dislocation, Ecchymosis, Instability, Joint effusion, Laceration, Laxity with valgus stress, Laxity with varus stress, Pain with ROM, Popliteal fossa tender, Tender joint line Calf: No: Tender Ankle: Tender Foot: Tender - Neurological Neuro grossly intact: Yes Cognition: Normal Orientation: AAOx4 Lynn Coma Scale Eye Opening: Spontaneous Magda Coma Scale Verbal: Oriented Lynn Coma Scale Motor: Obeys Commands Lynn Coma Scale Total: 15 Speech: Normal Motor strength normal: LUE, RUE, LLE, RLE Sensory: Normal - Psychological Associated symptoms: Normal affect, Normal mood - Skin Skin Temperature: Warm Skin Moisture: Dry Skin Color: Normal Course - Vital Signs Vital signs: Temp Pulse Resp BP Pulse Ox 98.7 F 76 14 113/67 99 06/04/18 10:59 06/04/18 10:59 06/04/18 10:59 06/04/18 10:59 06/04/18 10:59 Discharge - Discharge Clinical Impression: Pain in right lower leg, Numbness of right lower extremity Condition: Stable Disposition: HOME, SELF-CARE Additional Instructions: Leg Pain, Nonspecific We did not find an obvious cause for your leg pain. There's no sign of blood clot, infection, or other serious disease. Possible causes of vague leg pain include muscle or joint inflammation, disc disease in the lower back, pressure on the nerves in the back, or reduced blood flow through the arteries of the leg. Rest the leg. Pain can be eased with an antiinflammatory pain medicine such as ibuprofen. If the pain involves a small area, a heating pad might help. Call the doctor or return if the leg becomes swollen, weak, discolored, or increasingly painful, or if you develop any other significant change in your health. Numbness or Paresthesia Definition: Numbness and tingling are decreased or abnormal sensations caused by altered sensory nerve function. Description: The feeling of having a foot "fall asleep" is a familiar one. This same combination of numbness and tingling can occur in any region of the body and may be caused by a wide variety of disorders. Sensations such as these, which occur without any associated stimulus, are called paresthesias. Other types of paresthesias include feelings of cold, warmth, burning, itching, and skin crawling. Causes: Sensation is carried to the brain by neurons (nerve cells) running from the outer parts of the body to the spinal cord in bundles called nerves. In the spinal cord, these neurons make connections with other neurons that run up to the brain. Paresthesias are caused by disturbances in the function of neurons in the sensory pathway. This disturbance can occur in the central nervous system (the brain and spinal cord), the nerve roots that are attached to the spinal cord, or the peripheral nervous system (nerves outside the brain and spinal cord). Peripheral disturbances are the most common cause of paresthesias. "Falling asleep" occurs when the blood supply to a nerve is cut off-a condition called ischemia. Ischemia usually occurs when an artery is compressed as it passes through a tightly flexed joint. Sleeping with the arms above the head or sitting with the legs tightly crossed frequently cause numbness and tingling. Direct compression of the nerve also causes paresthesias. Compression can be short-lived, as when a heavy backpack compresses the nerves passing across the shoulders. Compression may also be chronic. Chronic nerve compression occurs in entrapment syndromes. The most common example is carpal tunnel syndrome. Carpal tunnel syndrome occurs when the median nerve is compressed as it passes through a narrow channel in the wrist. Repetitive motion or prolonged vibration can cause the lining of the channel to swell and press on the nerve. Chronic nerve root compression, or radiculopathy, can occur in disk disease or spinal arthritis. Other causes of paresthesias related to disorders of the peripheral nerves include: * Metabolic or nutritional disturbances. These disturbances include diabetes, hypothyroidism (a condition caused by too little activity of the thyroid gland), alcoholism, malnutrition, and vitamin B12 deficiency. Trauma. Trauma includes injuries that crush, sever, or pull on nerves. * Inflammation. * Connective tissue disease. These diseases include arthritis, systemic lupus erythematosus (a chronic inflammatory disease that affects many systems of the body, including the nervous system), polyarteritis nodosa (a vascular disease that causes widespread inflammation and ischemia of small and medium-size arteries), and Sj&ouml;gren's syndrome (a disorder marked by insufficient moisture in the tear ducts, salivary glands, and other glands). * Toxins. Toxins include heavy metals (metallic elements such as arsenic, lead, and mercury which can, in large amounts, cause poisoning), certain antibiotics and chemotherapy agents, solvents, and overdose of pyridoxine (vitamin B6). * Malignancy. * Infections. Infections include Lyme disease, human immunodeficiency virus (HIV), and leprosy. * Hereditary disease. These diseases include Dqodpox-Rhplw-Kgpgy disease (a hereditary disorder that causes wasting of the leg muscles, resulting in malformation of the foot), porphyria (a group of inherited disorders in which there is abnormally increased production of substances called porphyrins), and Jorge-Brown's syndrome (a hereditary disorder of the nerve root). Paresthesias can also be caused by central nervous system disturbances, including stroke, TIA (transient ischemic attack), tumor, trauma, multiple sclerosis, or infection. Symptoms: Sensory nerves supply or innervate particular regions of the body. Determining the distribution of symptoms is an important way to identify the nerves involved. For instance, the median nerve innervates the thumb, the first two fingers, half of the ring finger, and the part of the hand to which they connect. The ulnar nerve innervates the other half of the ring finger, the little finger, and the remainder of the hand. Distribution of symptoms may also aid diagnosis of the underlying disease. Diabetes usually causes a symmetrical "glove and stocking" distribution in the hands and feet. Multiple sclerosis may cause symptoms in several, widely areas. Other symptoms may accompany paresthesias, depending on the type and severity of the nerve disturbance. For instance, weakness may accompany damage to nerves that carry both sensory and motor neurons. (Motor neurons are those that carry messages outward from the brain.) Diagnosis: A careful history of the patient is needed for a diagnosis of paresthesias. The medical history should focus on the onset, duration, and location of symptoms. The history may also reveal current related medical problems and recent or past exposure to drugs, toxins, infection, or trauma. The family medical history may suggest a familial disorder. A work history may reveal repetitive motion, chronic vibration, or industrial chemical exposure. The physical and neurological examination tests for distribution of symptoms and alterations in reflexes, sensation, or strength. The distribution of symptoms may be mapped by successive stimulation over the affected area of the body. Lab tests for paresthesia may include blood tests and urinalysis to detect metabolic or nutritional abnormalities. Other tests are used to look for specific suspected causes. Nerve conduction velocity tests, electromyography, and imaging studies of the affected area may be employed. Nerve biopsy may be indicated in selected cases. Treatment: Treatment of paresthesias depends on the underlying cause. For limbs that have "fallen asleep," restoring circulation by stretching, exercising, or massaging the affected limb can quickly dissipate the numbness and tingling. If the paresthesia is caused by a chronic disease such as diabetes or occurs as a complication of treatments such as chemotherapy, most treatments are aimed at relieving symptoms. Anti-inflammatory drugs such as aspirin or ibuprofen are recommended if symptoms are mild. In more difficult cases, antidepressant drugs such as amitriptyline (Elavil) are sometimes prescribed. These drugs are given at a much lower dosage for this purpose than for relief of depression. They are thought to help because they alter the body's perception of pain. In severe cases, opium derivatives such as codeine can be prescribed. Currently trials are being done to determine whether treatment with human nerve growth factor will be effective in regenerating the damaged nerves. Alternative treatment: Several alternative treatments are available to help relieve symptoms of paresthesia. Nutritional therapy includes supplementation with B complex vitamins, especially vitamin B 12 (intramuscular injection of vitamin B12 is most effective). Vitamin supplements should be used cautiously however. Overdose of Vitamin B6 is one of the causes of paresthesias. People experiencing paresthesia should also avoid alcohol. Acupuncture and massage are said to relieve symptoms. Self-massage with aromatic oils is sometimes helpful. The application of topical ointments containing capsaicin, the substance that makes hot peppers hot, provides relief for some. It may also be helpful to wear loosely fitting shoes and clothing. None of these alternatives should be used in place of traditional therapy for the underlying condition. Prognosis: Treating the underlying disorder may reduce the occurrence of paresthesias. Paresthesias resulting from damaged nerves may persist throughout or even beyond the recovery period. The overall prognosis depends on the cause. Prevention: Preventing the underlying disorder may reduce the incidence of paresthesias. For those with frequent paresthesias caused by ischemia, changes in posture may help. You states you have pain and numbness in your right lower extremity after falling 3 days ago. You have sensation when I saw your leg with my thumb and when I massage the foot. You had full range of motion to your knee ankle and foot. These in no acute injuries. You will need to follow-up with your clinical safety specialist as x-rays will not show anything but fractures or fluid and there is no obvious fluid or injuries to this knee. Your specialist may decide to do a nerve conduction study if you continue not to have sensation. You have good brisk pedal pulses which shows you have good circulation to the leg. FOLLOW-UP CARE: If you have been referred to a physician for follow-up care, call the physicians office for an appointment as you were instructed or within the next two days. If you experience worsening or a significant change in your symptoms, notify the physician immediately or return to the Emergency Department at any time for re-evaluation. Forms: Smoking Cessation Education Referrals: CELINA TRONCOSO MD [NO LOCAL MD] - Follow up as needed COLEEN SANTIAGO MD [ACTIVE STAFF] - Follow up as needed
== END 2018-06-04 11:25 | disposition home or self-care (01) ==
LOC: ER 10:42
DX: M79.604 Pain in right leg (principal); R20.0 Anesthesia of skin; W19.XXXA Unspecified fall, initial encounter; J44.9 Chronic obstructive pulmonary disease, unspecified; E78.00 Pure hypercholesterolemia, unspecified; Z90.49 Acquired absence of other specified parts of digestive tract; Z90.710 Acquired absence of both cervix and uterus
CPT/HCPCS: 99283